=== PATIENT | male | born 1980 | race Caucasian/White ===

== ENCOUNTER 2021-11-09 07:15 | Outpatient (CLI) | payer OTHER, SELFPAY ==
--- NOTE | 2021-11-09 | XR_ITS ---
WS: [id number] Scoliosis survey, AP and lateral thoracolumbar spine views, 11/09/2021 Clinical Data: SCOLIOSIS Comparison: None. Findings: There is no scoliosis. No anomalous vertebral bodies are seen. There are no compression fractures. Mi nimal anterior osteoarthritic spurring of the T7-T12 vertebral bodies is seen. XR/XR scoliosis survey 4-5V [id number] Impression: Negative for scoliosis.
--- NOTE | 2021-11-09 | XR_ITS ---
WS: [id number] Cervical spine, 3 views, 11/09/2021 Clinical Data: SCOLIOSIS Comparison: None. Findings: No compression fractures are seen. The disc heights are normal. There is no prevertebral so ft tissue swelling. There is a small anterior inferior spur of the C5 vertebral body. The odontoid is unremarkable. The soft tissues of the neck and the lung apices are normal. XR/XR cervical spine 3V* [id number] Impression: Minimal C5 osteoarthritis.
== END 2021-11-09 07:16 | disposition home or self-care (01) ==
LOC: RADOUTREAD 11-10 07:39
PROVIDERS: Visit Provider Electrodiagnostic Medicine
DX: M41.9 Scoliosis, unspecified (principal); M47.892 Other spondylosis, cervical region
CPT/HCPCS: 72040; 72083